=== PATIENT | female | born 1960 | race Caucasian/White ===

== ENCOUNTER 2016-06-21 10:43 | Emergency (ER) | payer SELFPAY ==
[~2016-06-21] VITALS: Wt 65.0 kg
[2016-06-21] MEDS ORDERED: SOD CHLORIDE 0.9% 1,000 ML IV STA (11:10)
[2016-06-21] MEDS ORDERED: morphine 4 MG/ML VIAL IV STA (11:10)
[2016-06-21] MEDS ORDERED: ONDANSETRON 4 MG INJ IV STA (11:10)
[2016-06-21 11:57] LABS: BASOPHILS % 0.4 % (0.0-2.0); EOSINOPHILS # 0.1 10^3/ul (0.0-0.5); EOSINOPHILS % 2.3 % (0.0-7.0); HEMATOCRIT 43.8 % (37.0-47.0); HEMOGLOBIN 14.6 g/dl (12.0-16.0); LYMPHOCYTES # 2.3 10^3/ul (0.8-2.9); LYMPHOCYTES % 48.5 % (15.0-51.0); MEAN CORPUSCULAR HEMOGLOBIN 28.3 pg (29.0-33.0); MEAN CORPUSCULAR HGB CONC 33.2 g/dl (32.0-37.0); MEAN CORPUSCULAR VOLUME 85.1 fl (82.0-101.0); MEAN PLATELET VOLUME 9.1 fl (7.4-10.4); MONOCYTE # 0.3 10^3/ul (0.3-0.9); MONOCYTES % 5.6 % (0.0-11.0); NEUTROPHILS % 43.2 % (39.0-77.0); PLATELET COUNT 198 10^3/UL (140-440); RED BLOOD COUNT 5.15 10^6/ul (4.20-5.40); RED CELL DISTRIBUTION WIDTH 14.1 % (11.5-14.5); UNCORRECTED WBC 4.7 10^3/ul (4.8-10.8); WHITE BLOOD COUNT 4.7 10^3/ul (4.8-10.8)
[2016-06-21 11:59] LABS: CONDITION 1
[2016-06-21 12:12] LABS: ALBUMIN 4.4 g/dl (3.3-4.9); POTASSIUM 4.8 mmol/L (3.5-5.1)
[2016-06-21 12:15] LABS: ALBUMIN/GLOBULIN RATIO 1.57; BILIRUBIN,INDIRECT 0.3 mg/dl (0-1.1); BILIRUBIN,TOTAL 0.3 mg/dl (0.2-1.3); CALCIUM 9.6 mg/dl (8.4-10.2); CREATININE 0.74 mg/dl (0.44-1.00); TOTAL PROTEIN 7.2 g/dl (6.1-8.1)
[2016-06-21 12:26] LABS: ADD UMIC YES; URINE BILIRUBIN (Dip) NEGATIVE (NEGATIVE); URINE BLOOD (Dip) TRACE (NEGATIVE); URINE COLOR LT. YELLOW (YELLOW); URINE GLUCOSE (Dip) NEGATIVE (NEGATIVE); URINE KETONES (Dip) NEGATIVE (NEGATIVE); URINE LEUKOCYTE ESTERASE (Dip) NEGATIVE (NEGATIVE); URINE NITRITE (Dip) NEGATIVE (NEGATIVE); URINE TOTAL PROTEIN (Dip) NEGATIVE (NEGATIVE); URINE UROBILINOGEN (Dip) 0.2 E.U./dL (0.1-1.0)
--- NOTE | 2016-06-21 12:34 | RADRPT ---
PROCEDURE: CT Abdomen and pelvis without contrast. CLINICAL INDICATION: Lobe abdominal pain and bloating. TECHNIQUE: CT scan of the abdomen and pelvis without contrast was performed on a multidetector hig h-resolution CT scan. . Coronal and sagittal reformatted images were obtained from the axial [facility] e images. Standard CT scan of the abdomen pelvis without contrast protocols were performed. The total exam CTDI equals 15.21 mGy and the total exam DLP equals 858.96 mGy-cm. One or more of the following dose reduction techniques were used: - Automated exposure control. - Adjustment of the mA and/or kV according to patient size. Use of iterative reconstruction technique. COMPARISON: None FINDINGS: There is diverticular changes of the sigmoid and distal descending colon but no CT scan evidence of diverticulitis. There is retained feces throughout the large bowel consistent with constipation. T he appendix is unremarkable. The stomach and small bowel are unremarkable. Negative for intra-abdo dino free air free fluid abscesses or lymphadenopathy. The kidneys are normal in size without evid ence of calcified urinary calculi. No evidence of hydronephrosis bilaterally. No evidence of intra renal masses bilaterally. The urinary bladder is unremarkable. The gallbladder is unremarkable wi thout evidence of biliary ductal dilation. The liver spleen pancreas and adrenal glands are normal in size configuration without focal lesions. Mild parenchymal changes involving this is is consiste nt with scarring. The lung bases are otherwise unremarkable. There are degenerative changes lower thoracic and lumbar spine. No acute osseous findings. No evidence of osteoblastic or osteolytic lesions. IMPRESSION: 1. Distal descending and sigmoid diverticulosis without CT scan evidence of diverticulitis. 2. No evidence of urinary calcified calculi or obstructive uropathy. 3. Unremarkable appendix. 4. No evidence of intra-abdominal free air fluid abscesses or lymphadenopathy. RPTAT:AAJJ Physician Isaak Date Time Electronically viewed and signed by Physician Isaak on 06/21/2016 12:34 BM/
[2016-06-21 12:37] LABS: BACTERIA,URINE RARE; URINE RBCS 0-2 /HPF (0)
[2016-06-21] MEDS ORDERED: HYDR-902 PO (12:42)
[2016-06-21] MEDS ORDERED: ONDA4TAB14 PO (12:42)
[2016-06-21 13:23] VITALS: BP 111/78; PULSE 78; RESP 18
--- NOTE | 2016-06-21 13:43 | ERD ---
ER Documentation Chief Complaint Date/Time DATE: 06/21/16 TIME: 13:42 Chief Complaint abdominal pain generalized for the past few days. no nv/d. no dysuria HPI Patient is a 56-year-old female with no medical problems who presents with abdominal pain. The patient has abdominal pain for the past 1 month. The pain comes and goes. It was worse the last 2 days. She has lower abdominal pain bilaterally. She tried Advil for pain. She has no fevers. She has no vomiting or diarrhea. Upon review of old medical records this is the patient's first visit to the emergency department. She does not currently have a primary doctor. ROS All systems reviewed and are negative except as per history of present illness. Medications Home Meds Active Scripts Ondansetron (Ondansetron Odt) 4 Mg Tab.rapdis, 4 MG PO Q6H Y for NAUSEA AND/OR VOMITING, #30 TAB Prov:JAJA LYMAN MD 06/21/16 Hydrocodone/Acetaminophen ([place] 10-325 Tablet) 1 Each Tablet, 1 TAB PO Q6H Y for PAIN, #7 TAB Prov:JAJA LYMAN MD 06/21/16 Allergies Allergies: Coded Allergies: No Known Allergy (Unverified , 06/21/16) PMhx/Soc Medical and Surgical Hx: pt denies Medical Hx, pt denies Surgical Hx History of Surgery: No Anesthesia Reaction: No Hx Neurological Disorder: No Hx Respiratory Disorders: No Hx Cardiac Disorders: No Hx Psychiatric Problems: No Hx Miscellaneous Medical Probl: No Hx Alcohol Use: No Hx Substance Use: No Hx Tobacco Use: Yes Smoking Status: Current some day smoker FmHx Family History: No diabetes Physical Exam Vitals Vital Signs Date Time Temp Pulse Resp B/P Pulse Ox O2 Delivery O2 Flow Rate FiO2 06/21/16 13:23 78 18 111/78 98 Room Air 06/21/16 10:46 97.5 63 20 132/68 100 Physical Exam Const: Mild distress secondary to pain Head: Atraumatic Eyes: Normal Conjunctiva ENT: Normal External Ears, Nose and Mouth. Neck: Full range of motion..~ No meningismus. Resp: Clear to auscultation bilaterally Cardio: Regular rate and rhythm, no murmurs Abd: Soft, right and left lower abdominal pain to palpation without rebound or guarding Skin: No petechiae or rashes Back: No midline or flank tenderness Ext: No cyanosis, or edema Neur: Awake and alert Psych: Normal Mood and Affect Result Diagram: 06/21/16 1120 06/21/16 1120 Results 24 hrs Laboratory Tests Test 06/21/16 11:20 06/21/16 11:30 Alanine Aminotransferase (ALT/SGPT) 30IU/L Albumin 4.4g/dl Albumin/Globulin Ratio 1.57 Alkaline Phosphatase 70IU/L Anion Gap 16 Aspartate Amino Transf (AST/SGOT) 30IU/L Basophils # 0.010^3/ul Basophils % 0.4% Blood Morphology Comment Blood Urea Nitrogen 15mg/dl Calcium Level 9.6mg/dl Carbon Dioxide Level 29mmol/L Chloride Level 105mmol/L Creatinine 0.74mg/dl Direct Bilirubin 0.00mg/dl Eosinophils # 0.110^3/ul Eosinophils % 2.3% Globulin 2.80g/dl Glucose Level 92mg/dl Hematocrit 43.8% Hemoglobin 14.6g/dl Indirect Bilirubin 0.3mg/dl Lipase 104U/L Lymphocytes # 2.310^3/ul Lymphocytes % 48.5% Mean Corpuscular Hemoglobin 28.3pg Mean Corpuscular Hemoglobin Concent 33.2g/dl Mean Corpuscular Volume 85.1fl Mean Platelet Volume 9.1fl Monocytes # 0.310^3/ul Monocytes % 5.6% Neutrophils # 2.010^3/ul Neutrophils % 43.2% Nucleated Red Blood Cells # 0.010^3/ul Nucleated Red Blood Cells % 0.0/100WBC Platelet Count 92079^3/UL Potassium Level 4.8mmol/L Red Blood Count 5.1510^6/ul Red Cell Distribution Width 14.1% Sodium Level 145mmol/L Total Bilirubin 0.3mg/dl Total Protein 7.2g/dl White Blood Count 4.710^3/ul Urine Bacteria RARE Urine Bilirubin NEGATIVE Urine Clarity CLEAR Urine Color LT. YELLOW Urine Epithelial Cells RARE Urine Glucose NEGATIVE% Urine Hemoglobin TRACE Urine Ketones NEGATIVE Urine Leukocyte Esterase NEGATIVE Urine Microscopic RBC 0-2/HPF Urine Microscopic WBC NONE SEEN/HPF Urine Nitrite NEGATIVE Urine Specific [place] <=1.005 Urine Total Protein NEGATIVE Urine Urobilinogen 0.2 E.U./dL Urine pH 6.0 Current Medications Medications (Trade) Dose Ordered Sig/Emil Route PRN Reason Start Time Stop Time Status Last Admin Dose Admin Sodium Chloride (NS) 1,000 ml @ 1,000 mls/hr Q1H STAT IV 06/21/16 11:10 06/21/16 12:09 DC 06/21/16 11:40 Morphine Sulfate (morphine) 4 mg ONCE STAT IV 06/21/16 11:10 06/21/16 11:11 DC Ondansetron HCl (Zofran Inj) 4 mg ONCE STAT IV 06/21/16 11:10 06/21/16 11:11 DC 06/21/16 11:40 Procedures/MDM CT scan negative for surgical process per radiology. Patient is a 56-year-old female with no medical problems who presents with abdominal pain. She had laboratory studies and CT scan which were negative. Urinalysis shows no sign of acute infection. At this point I believe outpatient management is appropriate. The patient will need close follow-up with the local clinics within 24 hours for reevaluation. She can return sooner for any worsening symptoms. The patient understands the plan is okay for discharge at this time. At this point I doubt appendicitis, cholecystitis, pancreatitis, or bowel obstruction. She was given copies of her laboratory studies and CT scan result prior to discharge. Departure Diagnosis: Primary Impression: Abdominal pain Abdominal location: unspecified location Qualified Code: R10.9 - Abdominal pain, unspecified location Condition: Fair Patient Instructions: Abdominal Pain Referrals: [facility] YOU HAVE RECEIVED A MEDICAL SCREENING EXAM AND THE RESULTS INDICATE THAT YOU DO NOT HAVE A CONDITION THAT REQUIRES URGENT TREATMENT IN THE EMERGENCY DEPARTMENT. FURTHER EVALUATION AND TREATMENT OF YOUR CONDITION CAN WAIT UNTIL YOU ARE SEEN IN YOUR DOCTORS OFFICE WITHIN THE NEXT 1-2 DAYS. IT IS YOUR RESPONSIBILITY TO MAKE AN APPOINTMENT FOR FOL-UP CARE. IF YOU HAVE A PRIMARY DOCTOR --you should call your primary doctor and schedule an appointment IF YOU DO NOT HAVE A PRIMARY DOCTOR YOU CAN CALL OUR PHYSICIAN REFERRAL HOTLINE AT IF YOU CAN NOT AFFORD TO SEE A PHYSICIAN YOU CAN CHOSE FROM THE FOLLOWING [facility] CL[facility]ICS [facility] [address] [facility] [address] [facility] [address] [facility] [address] [facility] [address] [facility]. [facility] [address] Additional Instructions: FOLLOW UP WITH YOUR PRIMARY CARE PHYSICIAN TOMORROW.Return to this facility if you are not improving as expected. JAJA LYMAN MD Jun 21, 2016 13:43
== END 2016-06-21 13:23 | disposition home or self-care (01) ==
LOC: E/R 10:43
DX: R10.32 Left lower quadrant pain (principal); F17.210 Nicotine dependence, cigarettes, uncomplicated; R10.31 Right lower quadrant pain
CPT/HCPCS: 36415; 74176; 80053; 81001; 83690; 85025; 96374; 99285; J2405; J7030; 81003; J2270